=== PATIENT | male | born 1955 ===

== ENCOUNTER 2020-04-21 14:58 | Outpatient (REF) | payer OTHER, SELFPAY ==
--- NOTE | 2020-04-21 15:11 | XR_ITS ---
EXAMINATION: XR LUMBOSACRAL SPINE CLINICAL INFORMATION: Sciatica. COMPARISON: None TECHNIQUE: Three views of the lumbosacral spine. FINDINGS: There is maintained lumbar lordosis. Loss of L5-S1 disc height. Rest the disc heights, vertebral heights and alignment is normal. There is minimal ventral spondylosis. No visible acute fracture, dislocation or lytic process seen. XR/XR lumbar spine 2-3V IMPRESSION: Degenerative disc changes L5-S1 disc level.
== END 2020-04-21 14:59 | disposition home or self-care (01) ==
LOC: HO.HMGCX 14:58
PROVIDERS: PCP Nurse Practitioner Family; Visit Provider Nurse Practitioner Family
DX: M54.30 Sciatica, unspecified side (principal)
CPT/HCPCS: 72100

== ENCOUNTER 2020-08-02 15:36 | Outpatient (REF) | payer OTHER, SELFPAY ==
--- NOTE | ~2020-08-02 | MR_ITS ---
EXAMINATION: MR LUMBAR SPINE WITHOUT CONTRAST CLINICAL INFORMATION: Back pain. Patient reports low back pain radiating to left side, left leg weakness. Patient reports no prior spinal surgery. COMPARISON: None TECHNIQUE: MRI of the lumbar spine was obtained using routine sequences without contrast. FINDINGS: VERTEBRAL BODIES AND PARASPINAL STRUCTURES: On the sagittal sequence, posterior alignment is anatomic. Vertebral body heights are maintained. No evidence of acute fracture. There is loss of T2 disc signal at L2-L3, L3-L4, L4-L5, L5-S1. No suspicious marrow signal changes. CONUS MEDULLARIS AND CAUDA EQUINA: Normal, terminating at the level of L1. SPINAL LEVELS: T12-L1: Normal disc contour. No central canal or neural foraminal stenosis. L1-L2: Normal disc contour. No central canal or neural foraminal stenosis. L2-L3: There is an abnormal mass-like focus in the left side of the central canal and the lateral recess. This measures 1.8 x 0.7 x 1.2 cm. (Craniocaudal, AP, transverse). This focus is heterogeneously bright on T2, low on T1. Reference image 7-8: series 2; images 9-12 of the axial sequences. This abuts the left L3 nerve, with mild mass effect on the traversing nerves in the left central canal. This is of indeterminate etiology. Differential considerations include mass lesion of indeterminate etiology, extruded disc material. There is a minimal broad-based disc bulge at this level. T2 signal in the central aspect of the annulus, may reflect an annular tear in this region. Bilateral neural foramina are patent. L3-L4: Mild broad-based disc bulge, with superimposed asymmetric prominent disc bulge/protrusion in the left paracentral/foraminal region. There is focal amorphous soft tissue in the left lateral recess, image 5 series 7, which is abutting the traversing left L4 nerve. This could represent extruded disc material. There is mild left neural foraminal narrowing. Right neural foramen is patent. L4-L5: Minimal disc bulge. Focal T2 bright signal in the central annulus, may reflect a small annular tear. Mild facet arthropathy. No central canal stenosis. Mild left neural foraminal narrowing. L5-S1: Mild broad-based disc bulge. Left greater than right facet arthropathy. No central canal stenosis. Mild bilateral neural foraminal narrowing. MR/MR lumbar spine wo con IMPRESSION: 1. There is an amorphous mass-like focus in the left side of the central canal and the left lateral recess at L2-L3. This measures 1.8 x 0.7 x 1.2 cm. This is abutting the left L3 nerve, with mild mass effect on the traversing nerves in the central canal. This is of indeterminate etiology. Differential considerations include mass lesion of indeterminate etiology, extruded disc material. Recommend MRI with and without contrast for further evaluation. 2. Possible small annular tear at L2-L3. 3. At L3-L4, disc bulge with asymmetric prominence in the left paracentral/foraminal region. Small amorphous soft tissue in the left lateral recess, abutting the left L4 nerve. This is of indeterminate etiology. This could represent extruded disc material. This can also be evaluated on the followup MRI with and without contrast. 4. At L4-L5, mild disc bulge. Question small annular tear. 5. There is neural foraminal narrowing at multiple levels, detailed [id number].
== END 2020-08-02 15:37 | disposition home or self-care (01) ==
LOC: HO.MRI 15:36
PROVIDERS: Visit Provider Nurse Practitioner Family
DX: M51.36 Other intervertebral disc degeneration, lumbar region (principal); M54.30 Sciatica, unspecified side
CPT/HCPCS: 72148

== ENCOUNTER 2020-09-13 08:02 | Outpatient (REF) | payer OTHER, SELFPAY ==
--- NOTE | ~2020-09-13 | MR_ITS ---
EXAMINATION: MR LUMBAR SPINE WITHOUT AND WITH CONTRAST CLINICAL INFORMATION: 65-year-old with low back and left leg pain. COMPARISON: 08/02/2020 MRI. TECHNIQUE: MRI of the lumbar spine was obtained using routine sequences with and without contrast. Intravenous contrast: Gadavist 8.5 mL FINDINGS: Coronal Alignment:?Normal. Sagittal Alignment:?Normal. Lumbosacral Junction:?Normal. Vertebral Bodies: Normal height. Bone Marrow: Small patchy zone of marrow edema and marrow enhancement corresponding to the posterior aspect of the left iliac bone which is only partially imaged and is nonspecific. Otherwise unremarkable. Conus Medullaris:?Terminates at L1.?Morphology and signal is normal. No abnormal enhancement. Intradural Nerve Roots: Within normal limits. No abnormal intradural enhancement. L5-S1: Mild loss of disc space height and disc desiccation are stable from previous exam, with mild spondylosis and disc bulging and moderate bilateral facet arthropathy with [id number] neural foraminal stenosis, left more than right, stable in appearance without neural impingement and no significant canal stenosis. L4-L5: Disc space height is well maintained with disc desiccation, stable in appearance. There is mild concentric disc bulge and endplate spurring with a left-sided foraminal/extraforaminal disc osteophyte complex encroaching on the inferior left neural foramen, stable in appearance without neural impingement. Mild flattening of the dural sac is noted with a central annular fissure, stable in appearance without significant spinal canal stenosis. L3-L4: Rgsi-[id number] loss of disc space height is noted asymmetric to the left with disc desiccation, stable in appearance from previous exam. There is a left subarticular disc herniation with some enhancing granulation tissue in the left subarticular zone, similar to the previous exam, with encroachment on the origin of the left L4 nerve root sleeve, unchanged in appearance. There is underlying disc bulging and anterior and paravertebral spondylosis, stable in appearance without significant central spinal stenosis. [id number] left-sided neural foraminal stenosis is stable, with disc bulging abutting the exiting left L3 nerve root, unchanged. L2-L3: The previously noted mass-like structure on the left side of the thecal sac at the level of the mid body L3 is no longer visualized and appears to have resolved. There is slightly asymmetric enhancement in the epidural space on the left at this level, the significance of which is uncertain. Disc space height is well maintained with disc desiccation, stable in appearance. There is asymmetric enhancing epidural tissue in the left subarticular recess, and there is minimal disc bulging with a subtle left subarticular disc protrusion. Small inferior foraminal disc herniation on the left, stable in appearance with mild left-sided neural foraminal narrowing, unchanged. No significant central canal stenosis. L1-L2: Disc space height and signal are well maintained without significant disc bulge or herniation and no significant spondylosis, facet arthrosis, canal or neural foraminal stenosis. Anterior marginal spondylosis at T12-L1 is noted. Paraspinal/Retroperitoneal: Paraspinal soft tissue structures appear unremarkable. MR/MR lumbar spine wo/w con IMPRESSION: 1. The previously noted structure on the left side of the canal at L2-L3 was likely an extruded fragment which has almost completely resorbed, with some residual epidural granulation tissue in the left subarticular zone and left lateral recess, with disc bulging and a small left subarticular disc protrusion and inferior left foraminal disc protrusion at this level with stable mild narrowing at the left neural foramen. 2. Multilevel discogenic degenerative changes between L2-L3 and L5-S1 inclusive, as described above with a left-sided subarticular disc herniation at L3-L4 stable from previous exam with enhancing granulation tissue and encroachment on the traversing left L4 nerve root sleeve origin. 3. Other degenerative changes, as discussed above, are stable.
[2020-09-13 09:00] LABS: Blood Urea Nitrogen 17 mg/dL (9-16); Estimated Glomerular Filt Rate > 60
== END 2020-09-13 08:03 | disposition home or self-care (01) ==
LOC: HO.MRI 08:02
PROVIDERS: Visit Provider Nurse Practitioner Family
DX: M89.9 Disorder of bone, unspecified (principal)
CPT/HCPCS: 36415; 72158; 82565; 84520; A9585

== ENCOUNTER 2021-01-20 06:37 | Day surgery (SDC) | payer OTHER, SELFPAY ==
[2020-10-18 11:11] VITALS: BMI 25.9
--- NOTE | 2020-10-20 09:10 | P.CONAN_ITS ---
HPI - Anesthesia Eval Consult details Narrative: 65yo M for Colonoscopy afib - no OAC +ETOH PMFSH Active Problems Active Problems: All Active Problems (Updated 10/18/20 @ 11:16 by India Becerra) Degenerative disc disease, lumbar (Acute) Atrial fibrillation and flutter (Acute) Screening for colon cancer (Acute) Physical exam (Acute) Screening PSA (prostate specific antigen) (Acute) Fatigue (Acute) Skin lesion (Acute) Lesion of lumbar spine (Acute) Sleep apnea (Acute) Dupuytren contracture (Acute) Sciatica (Acute) Past Medical History Medical History (Updated 10/18/20 @ 11:16 by India Becerra) Alcohol abuse Atrial flutter Dupuytren contracture Sciatica Family History Family History Father Lung cancer Mother No problems noted. Surgical History Surgical History (Updated 10/18/20 @ 11:14 by India Beecrra) H/O colonoscopy History of cardioversion History of rotator cuff surgery Social History Social History (Updated 10/18/20 @ 13:15 by India Becerra) Alcohol intake: current Alcohol intake frequency: 3 or more drinks per day Alcohol type: wine and hard liquor Smoking Status: Former smoker Tobacco Type: Cigarette Years Smoked: 10 years Smoking Quit Date: 2013 Meds Allergies Allergy/AdvReac Type Severity Reaction Status Date / Time No Known Allergies Allergy Verified 07/22/20 13:35 Home Medications Medication Instructions Recorded Confirmed Last Taken Type metoprolol succinate 1 tab PO DAILY 10/18/20 10/18/20 Unknown History metoprolol tartrate 50 mg PO DAILY PRN 10/18/20 10/18/20 Unknown History Exam Exam Date and Time: October 20, 2020 0910 Height,Weight and Vital Signs: Height 6 ft Weight 86.636 kg Assessment and Plan Assessment Anesthesia Assessment: Chart Reviewed
--- NOTE | 2021-01-19 08:17 | HO.ANESPROP2 ---
Documented by User: Radha Valderrama 01/19/21 08:19 HPI - Anesthesia Eval Consult details Narrative: 65yo M for Colonoscopy +ETOH daily No anticoag for afib/flutter. S/P cardioversion PMFSH Active Problems Active Problems: All Active Problems (Updated 10/18/20 @ 11:16 by India Becerra) Degenerative disc disease, lumbar (Acute) Atrial fibrillation and flutter (Acute) Screening for colon cancer (Acute) Physical exam (Acute) Screening PSA (prostate specific antigen) (Acute) Fatigue (Acute) Skin lesion (Acute) Lesion of lumbar spine (Acute) Sleep apnea (Acute) Dupuytren contracture (Acute) Sciatica (Acute) Past Medical History Medical History (Updated 10/20/20 @ 09:10 by Radha Valderrama) Alcohol abuse Atrial flutter Dupuytren contracture Sciatica Family History Family History Father Lung cancer Mother No problems noted. Surgical History Surgical History (Updated 10/18/20 @ 11:14 by India Becerra) H/O colonoscopy History of cardioversion History of rotator cuff surgery Social History Social History (Updated 10/18/20 @ 13:15 by India Becerra) Alcohol intake: current Alcohol intake frequency: 3 or more drinks per day Alcohol type: wine and hard liquor Years Smoked: 10 years Advance Directives: No Advance Directives Information Provided: No Meds Allergies Allergy/AdvReac Type Severity Reaction Status Date / Time No Known Allergies Allergy Verified 07/22/20 13:35 Home Medications Medication Instructions Recorded Confirmed Last Taken Type metoprolol succinate 25 mg 1 tab PO DAILY 10/18/20 10/18/20 01/20/21 History tablet,extended release 24 hr metoprolol tartrate 50 mg tablet 50 mg PO DAILY PRN 10/18/20 10/18/20 Unknown History flecainide 100 mg tablet 1 tab PO Q12H 01/13/21 01/13/21 01/20/21 History Exam Exam Date and Time: January 19, 2021 0817 Height,Weight and Vital Signs: Height 6 ft Weight 86.636 kg Assessment and Plan Assessment Anesthesia Assessment: Chart Reviewed Documented by User: Марина Juvencio 01/20/21 07:14 [facility] Past Medical History Medical History (Updated 10/20/20 @ 09:10 by Radha Valderrama) Alcohol abuse Atrial flutter Dupuytren contracture Sciatica Family History Family History Father Lung cancer Mother No problems noted. Family history of problems with anesthesia: No Surgical History Surgical History (Updated 10/18/20 @ 11:14 by India Becerra) H/O colonoscopy History of cardioversion History of rotator cuff surgery History of Problems with Anesthesia: No Social History Social History (Updated 10/18/20 @ 13:15 by India Becerra) Alcohol intake: current Alcohol intake frequency: 3 or more drinks per day Alcohol type: wine and hard liquor Years Smoked: 10 years Advance Directives: No Advance Directives Information Provided: No Meds Allergies Allergy/AdvReac Type Severity Reaction Status Date / Time No Known Allergies Allergy Verified 07/22/20 13:35 Home Medications Medication Instructions Recorded Confirmed Last Taken Type metoprolol succinate 25 mg 1 tab PO DAILY 10/18/20 10/18/20 01/20/21 History tablet,extended release 24 hr metoprolol tartrate 50 mg tablet 50 mg PO DAILY PRN 10/18/20 10/18/20 Unknown History flecainide 100 mg tablet 1 tab PO Q12H 01/13/21 01/13/21 01/20/21 History Exam Airway Mallampati Class: II (Caps top front side) TM Dist: >3cm Neck ROM: Full Heart: rrr Lungs: cta Assessment and Plan Assessment Anesthesia Assessment: Anesthesia Plan Discussed and Chart Reviewed Final Anesthetic Review Family History of Problems with Anesthesia: No History of Problems with Anesthesia: No NPO: Yes ASA Class: II Final Preanesthetic Review: No Changes in Pt Med Stat and Consent Obtained/Reviewed Patient Risk: Intermediate Procedure Risk: Intermediate Anesthetic Plan Anesthetic Plan: MAC: Disposition: Standard PACU
[2021-01-20 06:57] VITALS: BP 136/72; PULSE 45; RESP 16; TEMP 36.2; O2SAT 95
[2021-01-20] MEDS: Lactated Ringers 1,000 ML 100 ML IVCONT (07:04)
[2021-01-20 08:30] VITALS: BP 97/55; PULSE 40; RESP 14; TEMP 36.1; O2SAT 96
--- NOTE | 2021-01-20 08:34 | PM.OP ---
Brief Operative Note Date of Service: 01/20/21 Pre-op diagnosis: Screening Post-op diagnosis: other (Diverticulosis) Procedure: Colonoscopy to the cecum and TI Surgeon: Aleksandr Lazcano Anesthesia: MAC Was an Sheet Manufacturing Supervisor used for this Procedure?: No Estimated blood loss (mL): 0 Pathology: none sent Condition: stable Disposition: PACU
[2021-01-20 08:45] VITALS: BP 130/69; PULSE 38; RESP 16; O2SAT 98
--- NOTE | 2021-01-20 08:51 | OP_ITS ---
SURGEON: Aleksandr Lazcano MD INDICATIONS: The patient presents for evaluation of colorectal cancer screening. Full consent has been obtained from him for this, including risks of bleeding and perforation. PREOPERATIVE DIAGNOSIS: Colorectal cancer screening. POSTOPERATIVE DIAGNOSIS: PROCEDURE PERFORMED: Colonoscopy to the cecum and terminal ileum. ESTIMATED BLOOD LOSS: COMPLICATIONS: ANESTHESIA: Monitored anesthesia care. ASSISTANTS: SPECIMENS: POSTOPERATIVE DIAGNOSES: Colorectal cancer screening, mild sigmoid diverticulosis, small internal hemorrhoids. DESCRIPTION OF PROCEDURE: The patient was placed in the left lateral decubitus position. The digital rectal exam revealed no abnormalities. The Olympus video pediatric colonoscope was entered into the rectum and advanced easily to the cecum. Once in the cecum, I did identify normal-appearing cecal pouch with appendiceal orifice and a normal-appearing ileocecal valve. The terminal ileum was cannulated and appeared normal. The scope was withdrawn back in the colon. The entire cecum and ileocecal valve appeared normal. Scope was slowly withdrawn assessing all mucosal surfaces carefully. Preparation was excellent. I did not visualize any sign of polyps, colitis, nor angiodysplasia. There was a mild amount of sigmoid diverticulosis. In the rectum, scope was retroflexed visualizing small internal hemorrhoids, but no other pathology. The rectal mucosa appeared normal. The scope was straightened out and withdrawn from the patient. He tolerated the procedure well and was returned to the recovery area in stable condition. IMPRESSION: 1. Mild sigmoid diverticulosis. 2. Small internal hemorrhoids. PLAN: Given today's negative exam and negative family history, I would recommend a followup colonoscopy in 10 years for further screening. He will otherwise see me on a p.r.n. basis. MD DOMINGA Burks/ARELIS / [phone]
== END 2021-01-20 09:33 | disposition home or self-care (01) ==
PROVIDERS: PCP Nurse Practitioner Family; Visit Provider Internal Medicine
PROC: 0DJD8ZZ Inspection of Lower Intestinal Tract, Via Natural or Artificial Opening Endoscopic (ICD-10-PCS; CPT 45378; principal; 2021-01-20 07:30)
DX: Z12.11 Encounter for screening for malignant neoplasm of colon (principal); K57.30 Diverticulosis of large intestine without perforation or abscess without bleeding; K64.8 Other hemorrhoids; I48.92 Unspecified atrial flutter; Z79.899 Other long term (current) drug therapy; Z79.1 Long term (current) use of non-steroidal anti-inflammatories (NSAID); Z87.891 Personal history of nicotine dependence
CPT/HCPCS: 45378

== ENCOUNTER 2023-03-16 09:57 | Outpatient (REF) | payer OTHER, SELFPAY ==
[2023-03-16 11:34] LABS: MANUAL DIFF FLAG NO
[2023-03-16 11:47] LABS: Basophils Percent Auto 0.4 % (0-2); Eosinophils Absolute Auto 0.1 X10*3/uL (0.0-0.4); Eosinophils Percent Auto 1.8 % (0-4); Hematocrit 42.3 % (42.0-52.0); Hemoglobin 13.7 g/dl (14.0-18.0); Imm Gran Abs Auto 0.01 X10*3/uL (0.00-0.03); Imm Gran Pct Auto 0.2 % (0.0-0.4); Lymphocytes Absolute Auto 1.7 X10*3/uL (1.2-4.9); Lymphocytes Percent Auto 31.8 % (20-40); Mean Corpuscular HGB Conc 32.4 g/dl (31.0-36.0); Mean Corpuscular Hemoglobin 31.1 pg (27.0-33.0); Mean Corpuscular Volume 96.1 fL (80.0-98.0); Mean Platelet Volume 11.7 fL (9.4-12.4); Monocytes Absolute Auto 0.5 X10*3/uL (0.1-1.2); Monocytes Percent Auto 8.4 % (2-11); Neutrophils Absolute Auto 3.2 x10*3/uL (2.0-8.3); Neutrophils Percent Auto 57.4 % (45-73); Platelet Count 262 X10*3/uL (160-400); Red Cell Distribution Width 13.9 % (11.0-16.0); White Blood Count 5.5 X10*3/uL (4.8-10.8)
[2023-03-16 11:57] LABS: Appearance Urine Clear; Color Urine Yellow; Glucose Urine UA Negative (Negative); Leukocyte Esterase Urine Negative (Negative); Nitrite Urine Negative (Negative); PH 6.5 (5.0-9.0); Specific Gravity - Urine 1.015 (1.005-1.025); Urine Blood Negative (Negative); Urine Ketones Negative (Negative); Urine Protein Negative (Neg-Trace)
[2023-03-16 12:16] LABS: Alanine Aminotransferase 17 U/L (0-40); Alkaline Phosphatase 48 U/L (39-117); Anion Gap 12 (12-20); Aspartate Amino Transferase 25 U/L (5-37); Bilirubin Total 0.6 mg/dL (0.0-1.0); Blood Urea Nitrogen 14 mg/dL (9-16); Calcium 9.3 mg/dL (8.4-10.2); Carbon Dioxide 27 mmol/L (22-29); Chloride 106 mmol/L (96-108); Cholesterol 232 mg/dL (<200); Estimated Glomerular Filt Rate > 60; Glucose Fasting 101 mg/dL (60-99); HDL Cholesterol 66 mg/dL (>40); LDL Cholesterol Calculated 153 mg/dL (<100); Potassium 4.3 mmol/L (3.3-5.1); Sodium 141 mmol/L (135-145); Total Protein 6.7 g/dL (6.5-8.0); Triglycerides 65 mg/dL (<150)
[2023-03-16 12:31] LABS: TSH reflex Free T4 1.79 uIU/mL (0.32-4.0)
[2023-03-16 12:32] LABS: Prostate Specific Antigen Scr 0.67 ng/mL (<0.05-4.0)
[2023-03-21 10:14] LABS: Testosterone, Free 79.1 pg/mL (35.0-155.0); Testosterone, Total 471 ng/dL (250-1100)
== END 2023-03-16 09:58 | disposition home or self-care (01) ==
LOC: HO.HMGCLDS 09:57
PROVIDERS: PCP Nurse Practitioner Family; Visit Provider Nurse Practitioner Family
DX: Z00.00 Encounter for general adult medical examination without abnormal findings (principal); F52.0 Hypoactive sexual desire disorder; Z12.5 Encounter for screening for malignant neoplasm of prostate; I10 Essential (primary) hypertension
CPT/HCPCS: 36415; 80053; 80061; 81003; 84153; 84402; 84403; 84443; 85025

== ENCOUNTER 2023-03-21 15:03 | Outpatient (AMB) | payer OTHER, SELFPAY ==
[2023-03-21 15:25] VITALS: BP 128/68; PULSE 55; O2SAT 96; BMI 25.0
--- NOTE | 2023-03-21 15:25 | MHC.PC.OV ---
Vital Signs 03/21/23 15:25 Height 6 ft Weight 184 lb BMI 25.0 BP 128/68 Blood Pressure Location Rt brachial Position Sitting Pulse 55 Pulse Source Pulse Oximeter Pulse Oximetry (%) 96 Oxygen Delivery Method Room Air Intake Visit Reasons: 6 Month follow up after labs done Intake Note: pt is here for 6 on f/u Allergies No Known Allergies Allergy (Verified 03/21/23 15:27) Tobacco use date assessed: 09/20/22 Fall risk assessment: No Falls in past year Last assessed Fall Risk: 03/21/23 Dental Screening Dental Screen Date: 03/21/23 Did you have a dental visit in the last 12 months?: Yes Did you have a dental problem in the last 6 months where you did not have access to dental care?: No Was dental information given to patient?: Patient has dentist HPI 6 Month follow up after labs done HPI Details HTN: stable currently. Pt denies any CP, SOB, JARQUIN, or dizziness. afib: sees cardiology. slight anemia: will recheck labs PFSH Medical History Osteoarthritis Lumbar herniated disc Alcohol abuse Atrial flutter Dupuytren contracture Sciatica Surgical History H/O colonoscopy History of cardioversion History of rotator cuff surgery Family History Father Lung cancer Mother No problems noted. Son Mental health disorder Social History Housing: House Alcohol intake: current Alcohol intake frequency: 3 or more drinks per day Alcohol type: wine and hard liquor Patient Tobacco Use Status: Former Tobacco user Years Smoked: 10 years e-Cigarette/Vaping Use: Never Used Second Hand Smoke Exposure: No Current occupational status: employed Cognitive needs: No Hearing needs: No Vision needs: No Questionnaire Thrive Questionnaire Date Thrive assessed: 09/20/22 REECE-7 AMB Questionnaire REECE-7 Date REECE - 7 assessed: 09/20/22 Source: Developed by Drs. Aleksandr Mendoza, Juliet Rubio, Silas Nicolas and colleagues, with an educational saray from [employer]. Physical exam (Primary Care) Vital Signs: Last Vital Signs Pulse 55 03/21/23 15:25 BP 128/68 03/21/23 15:25 Pulse Ox 96 03/21/23 15:25 Oxygen Delivery Method Room Air 03/21/23 15:25 BMI result Body Mass Index 25.0 Tobacco/Smoking Status: Tobacco use Status Tobacco use date assessed 09/20/22 03/21/23 15:29 Patient Tobacco Use Status Former Tobacco user 03/21/23 15:29 e-Cigarette/Vaping Use Never Used 03/21/23 15:29 Thrive Assessment: Date of Thrive Assessment Date Thrive assessed 09/20/22 03/21/23 15:29 Const General: cooperative Nutritional Appearance: average body habitus Resp Effort & Inspection: normal respiratory effort Auscultation: clear to auscultation bilaterally Cardio Rate: regular rate Rhythm: regular rhythm Heart sounds: S1 normal heart sound present and S2 normal heart sound present Extrem Right lower extremity: no edema Left lower extremity: no edema Psych Appearance: grossly normal Mental Status: mental status grossly normal Speech and movement: Normal speech and movement present Affect: normal affect Attitude: cooperative Thought process: Normal thought process present Thought content: Normal thought content present Insight: Good insight present (Psych) Judgement: Good judgement present (Psych) Assessment and Plan Assessment & Plan (1) HTN (hypertension): Code(s): I10 - Essential (primary) hypertension (2) Anemia: Code(s): D64.9 - Anemia, unspecified Orders: Orders Complete Blood Count Auto Diff Today I10 - Essential (primary) hypertension IRON PROFILE Today D64.9 - Anemia, unspecified Ferritin Today D64.9 - Anemia, unspecified Vitamin B12 and Folate Today D64.9 - Anemia, unspecified Coding Level of Care Code Est Pt Level 3 (20983) Diagnoses HTN (hypertension) I10 Anemia D64.9
== END 2023-03-21 16:36 | disposition home or self-care (01) ==
PROVIDERS: Visit Provider Nurse Practitioner Family
DX: I10 Essential (primary) hypertension (principal); D64.9 Anemia, unspecified
CPT/HCPCS: 99213

== ENCOUNTER 2023-07-19 10:01 | Outpatient (REF) | payer OTHER, SELFPAY ==
[2023-07-19 13:15] LABS: MANUAL DIFF FLAG NO
[2023-07-19 13:45] LABS: Basophils Percent Auto 0.3 % (0-2); Eosinophils Absolute Auto 0.1 X10*3/uL (0.0-0.4); Eosinophils Percent Auto 1.2 % (0-4); Hematocrit 43.4 % (42.0-52.0); Imm Gran Abs Auto 0.03 X10*3/uL (0.00-0.03); Imm Gran Pct Auto 0.5 % (0.0-0.4); Lymphocytes Absolute Auto 1.9 X10*3/uL (1.2-4.9); Lymphocytes Percent Auto 31.5 % (20-40); Mean Corpuscular HGB Conc 32.3 g/dl (31.0-36.0); Mean Corpuscular Hemoglobin 31.5 pg (27.0-33.0); Mean Corpuscular Volume 97.5 fL (80.0-98.0); Monocytes Absolute Auto 0.5 X10*3/uL (0.1-1.2); Monocytes Percent Auto 8.9 % (2-11); Neutrophils Absolute Auto 3.5 x10*3/uL (2.0-8.3); Neutrophils Percent Auto 57.6 % (45-73); Platelet Count 282 X10*3/uL (160-400); Red Blood Count 4.45 X10*6/uL (4.60-5.80); Red Cell Distribution Width 13.5 % (11.0-16.0); White Blood Count 6.1 X10*3/uL (4.8-10.8)
[2023-07-19 13:58] LABS: Ferritin 210 ng/mL (20-250); Iron 110 mcg/dL (45-160); Percent Iron Saturation 39 % (15-50); Total Iron Binding Capacity 282 mcg/dL (228-428); Unsaturated Iron Binding 172 ug/dL
[2023-07-19 14:17] LABS: Folate 12.4 ng/mL (> or = 4.0); Vitamin B12 348 pg/mL (200-900)
[2023-07-19 14:59] LABS: CDiff Gene PCR NEGATIVE (Negative)
[2023-07-19 15:13] LABS: Adenovirus F 40/41 Not Detected (Not Detect.); Astrovirus Not Detected (Not Detect.); Campylobacter Not Detected (Not Detect.); Cryptosporidium Not Detected (Not Detect.); Cyclospora cayetanensis Not Detected (Not Detect.); E. coli EAEC Not Detected (Not Detect.); E. coli EPEC Not Detected (Not Detect.); E. coli ETEC Not Detected (Not Detect.); E. coli STEC Not Detected (Not Detect.); Entamoeba histolytica Not Detected (Not Detect.); Giardia lamblia Not Detected (Not Detect.); Norovirus GI/GII Not Detected (Not Detect.); Plesiomonas shigelloides Not Detected (Not Detect.); Rotavirus A Not Detected (Not Detect.); Salmonella Not Detected (Not Detect.); Sapovirus Not Detected (Not Detect.); Shigella sp./EIEC Not Detected (Not Detect.); Vibrio Not Detected (Not Detect.); Vibrio Cholerae Not Detected (Not Detect.); Yersinia enterocolitica Not Detected (Not Detect.)
== END 2023-07-19 10:02 | disposition home or self-care (01) ==
LOC: HO.HMGCLDS 10:01
PROVIDERS: PCP Nurse Practitioner Family; Visit Provider Nurse Practitioner Family
DX: D64.9 Anemia, unspecified (principal); I10 Essential (primary) hypertension; R19.7 Diarrhea, unspecified
CPT/HCPCS: 36415; 82607; 82728; 82746; 83540; 85025; 87338; 87493; 87507

== ENCOUNTER 2023-09-25 16:31 | Outpatient (AMB) | payer OTHER, SELFPAY ==
--- NOTE | 2023-09-25 16:32 | MHC.PC.OV ---
Vital Signs 09/25/23 16:35 Weight 183 lb BP 112/78 Blood Pressure Location Rt brachial Position Sitting Pulse 49 L Pulse Source Pulse Oximeter Pulse Oximetry (%) 98 Oxygen Delivery Method Room Air Intake Visit Reasons: Annual PE Intake Note: Patient here for physical exam. pt would like to talk about weight loss colonoscopy: 2020 due back in 10yrs Allergies No Known Allergies Allergy (Verified 09/25/23 17:28) Medication List - Last Reconciled 09/25/23 by LISY Carter flecainide 1 tab PO Q12H metoprolol succinate ER 1 tab PO DAILY metoprolol tartrate 50 mg PO DAILY PRN scopolamine base 1 patch transdermal Q72H PRN Tobacco use date assessed: 09/25/23 Fall risk assessment: No Falls in past year Last assessed Fall Risk: 09/25/23 Dental Screening Dental Screen Date: 09/25/23 Did you have a dental visit in the last 12 months?: Yes Did you have a dental problem in the last 6 months where you did not have access to dental care?: No Was dental information given to patient?: Patient has dentist HPI Annual PE HPI Details Pt is here for a PE. Will order labs. Colon screen is up to date. PSA is up to date. Denies dribbling with urination, weak stream, and frequent nocturia. Pt reports low libido. Will check testosterone. 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 He also sees cardiology. [facility] Medical History Osteoarthritis Lumbar herniated disc Alcohol abuse Atrial flutter Dupuytren contracture Sciatica Surgical History H/O colonoscopy History of cardioversion History of rotator cuff surgery Family History Father Lung cancer Mother No problems noted. Son Mental health disorder Social History Housing: House Alcohol intake: current Alcohol intake frequency: 3 or more drinks per day Alcohol type: wine and hard liquor Patient Tobacco Use Status: Former Tobacco user Years Smoked: 10 years e-Cigarette/Vaping Use: Never Used Second Hand Smoke Exposure: No Current occupational status: employed Cognitive needs: No Hearing needs: No Vision needs: No Questionnaire Thrive Questionnaire Date Thrive assessed: 09/20/22 AUDIT C Alcohol Use Questionnaire (AUDIT-C) 1. How often do you have a drink containing alcohol?: Never 3. How often do you have six or more drinks on one occasion?: Never Total Score: 0 Score Reviewed/Action Taken: No REECE-7 AMB Questionnaire REECE-7 Date REECE - 7 assessed: 09/20/22 Source: Developed by Drs. Aleksandr Mendoza, Juliet Rubio, Silas Nicolas and colleagues, with an educational saray from [employer]. Review of Systems Const Denies chills and Denies fever(s) Eyes Denies blurry vision ENT Denies vertigo, Denies dizziness and Denies sore throat Card Denies chest pain at rest, Denies chest pain with activity, Denies diaphoresis, Denies dyspnea and Denies dyspnea on exertion Resp Denies cough, Denies dyspnea, Denies dyspnea on exertion and Denies wheezing GI Denies abdominal pain, Denies melena, Denies hematochezia, Denies constipation, Denies diarrhea and Denies loose stools Denies hematuria Musc Denies numbness and Denies tingling Skin/Breast Denies lesions Neuro Denies vertigo, Denies dizziness, Denies numbness and Denies tingling Psych Denies anxiety, Denies depression, Denies homicidal ideation, Denies suicidal ideation and Denies other (substance abuse) Aller/Immun Denies wheezing Physical exam (Primary Care) Vital Signs: Last Vital Signs Pulse 49 L 09/25/23 16:35 BP 112/78 09/25/23 16:35 Pulse Ox 98 09/25/23 16:35 Oxygen Delivery Method Room Air 09/25/23 16:35 Tobacco/Smoking Status: Tobacco use Status Tobacco use date assessed 09/25/23 09/25/23 16:40 Patient Tobacco Use Status Former Tobacco user 09/25/23 16:34 e-Cigarette/Vaping Use Never Used 09/25/23 16:34 Thrive Assessment: Date of Thrive Assessment Date Thrive assessed 09/20/22 09/25/23 16:34 Const General: cooperative Nutritional Appearance: well nourished Orientation/consciousness: patient oriented x3 HENMT Head: Yes normal to inspection, Yes normocephalic and Yes atraumatic Ears: TM's normal bilaterally Eyes General: appearance normal, both eyes and all related structures Alignment and Position: alignment normal and position normal Neck Neck: Yes normal visual inspection and Yes no lymphadenopathy Thyroid: Thyroid normal Resp Effort & Inspection: normal respiratory effort Auscultation: clear to auscultation bilaterally Cardio Rate: regular rate Rhythm: regular rhythm Heart sounds: S1 normal heart sound present, S2 normal heart sound present and no murmurs GI Palpation (GI): Soft to palpation and nontender Auscultation: normal bowel sounds Male General Exam: Yes normal external exam Penis: normal penis Scrotum: scrotum normal, testes descended bilaterally and no inguinal hernias Testes: no testicular mass Skin Rashes: no rashes Neuro General: patient oriented x3, moves all extremities, no focal motor deficits and deep tendon reflexes 2+ bilaterally Romberg Test: Negative Psych Appearance: grossly normal Mental Status: mental status grossly normal Speech and movement: Normal speech and movement present Affect: normal affect Attitude: cooperative Thought process: Normal thought process present Thought content: Normal thought content present Insight: Good insight present (Psych) Judgement: Good judgement present (Psych) Assessment and Plan Assessment & Plan (1) Physical exam: Code(s): Z00.00 - Encounter for general adult medical examination without abnormal findings Plan: Labs ordered (2) Lack of libido: Code(s): 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 Scribed for LISY Lim by Eliana Coppola emergency medical services coordinator, on 09/25/2023 at 16:45 EST. Orders: Orders Complete Blood Count Auto Diff Today Z00.00 - Encounter for general adult medical examination without abnormal findings UA CC w/rflx Micro + Cult Today Z00.00 - Encounter for general adult medical examination without abnormal findings Comprehensive [place]. 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
[2023-09-25 16:35] VITALS: BP 112/78; PULSE 49; O2SAT 98
== END 2023-09-25 17:08 | disposition home or self-care (01) ==
PROVIDERS: PCP Nurse Practitioner Family; Visit Provider Nurse Practitioner Family
DX: Z00.00 Encounter for general adult medical examination without abnormal findings (principal); F52.0 Hypoactive sexual desire disorder
CPT/HCPCS: 99397

== ENCOUNTER 2024-03-31 16:11 | Outpatient (AMB) | payer OTHER, SELFPAY ==
--- NOTE | 2024-03-31 16:15 | A.OFFPC_ITS ---
Vital Signs 03/31/24 16:17 Height 6 ft Weight 185 lb BMI 25.1 BP 132/72 Blood Pressure Location Lt brachial Position Sitting Pulse 54 Pulse Source Pulse Oximeter Pulse Oximetry (%) 97 Oxygen Delivery Method Room Air Intake Visit Reasons: 6M F/U Intake Note: Pt is here today for his 6mo. f/u Allergies No Known Allergies Allergy (Verified 03/31/24 16:43) Medication List - Last Reconciled 03/31/24 by LISY Carter apixaban (Eliquis) 5 mg PO BID flecainide 1 tab PO Q12H metoprolol succinate ER 1 tab PO DAILY metoprolol tartrate 50 mg PO DAILY PRN scopolamine base 1 patch transdermal Q72H PRN Tobacco use date assessed: 03/31/24 Fall risk assessment: No Falls in past year Last assessed Fall Risk: 03/31/24 Dental Screening Dental Screen Date: 03/31/24 Did you have a dental visit in the last 12 months?: Yes Did you have a dental problem in the last 6 months where you did not have access to dental care?: No Was dental information given to patient?: Patient has dentist HPI 6M F/U HPI Details HTN: stable, 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 Pt denies anymore flutter type symptoms. He reports CP, 15 second intervals, once each week (for the past 3 weeks), while driving. Currently, missing all documentation from his cardiology team, including previous EKGs. No acute issues noted on current EKG, though will try to contact patient's cardiology team 1st thing tomorrow morning to get recent notes including previous EKGs for comparison. Patient refuses to go to the emergency room, denies shortness of breath, palpitations, radicular symptoms down and upper extremity. PFSH Medical History Osteoarthritis Lumbar herniated disc Alcohol abuse Atrial flutter Dupuytren contracture Sciatica Surgical History H/O colonoscopy History of cardioversion History of rotator cuff surgery Family History Father Lung cancer Mother No problems noted. Son Mental health disorder Social History Housing: House Alcohol intake: current Alcohol intake frequency: 3 or more drinks per day Alcohol type: wine and hard liquor Patient Tobacco Use Status: Former Tobacco user Years Smoked: 10 years e-Cigarette/Vaping Use: Never Used Second Hand Smoke Exposure: No Current occupational status: employed Cognitive needs: No Hearing needs: No Vision needs: No Questionnaire PHQ-9 Over the last 2 weeks, how often have you been bothered by any of the following problems? 05690 - PHQ-9 Billing: Patient declined-do not bill Source: Developed by Drs. Aleksandr Mendoza, Juliet Rubio, Silas Nicolas and colleagues, with an educational saray from [employer]. Thrive Questionnaire Date Thrive assessed: 03/31/24 I am a: Patient What is your living situation today?: I choose not to answer this question Within the past 12 months, did the food you bought not last and you didn't have the money to get more?: I choose not to answer this question Within the past 12 months, did you worry whether your food would run out before you got money to buy more?: I choose not to answer this question Do you have trouble paying for medicines?: I choose not to answer this question Do you have trouble getting transportation to medical appointments?: I choose not to answer this question Do you have trouble paying your heating and electricity bill?: I choose not to answer this question Do you have trouble taking care of your child, family member or friend?: I choose not to answer this question Do you have trouble with day-to-day activities such as bathing, preparing meals, shopping, managing finances, etc.?: I choose not to answer this question Are you interested in more education?: I choose not to answer this question Please select the resources that you would like help with: None Currently or been in a relationship where the following occur: I choose not to answer THRIVE Score: 0 AUDIT C Alcohol Use Questionnaire (AUDIT-C) 1. How often do you have a drink containing alcohol?: 4 or more times a week 2. How many drinks containing alcohol do you have on a typical day when you are drinking?: 3 or 4 3. How often do you have six or more drinks on one occasion?: Daily or almost daily Total Score: 9 Score Reviewed/Action Taken: Yes (Patient does report drinking wine on a daily basis, he understands dangers ) REECE-7 AMB Questionnaire REECE-7 Date REECE - 7 assessed: 03/31/24 Feeling nervous, anxious, or on edge: 0 = Not at all Not being able to stop or control worryin = Not at all Worrying too much about different things: 0 = Not at all Trouble relaxin = Not at all Being so restless that it is hard to sit still: 0 = Not at all Becoming easily annoyed or irritable: 0 = Not at all Feeling afraid as if something awful might happen: 0 = Not at all Total REECE-7 score (0-4 normal; 5-9 mild; 10-14 moderate; 15-21 severe): 0 Source: Developed by Drs. Aleksandr Mendoza, Juliet Rubio, Silas Nicolas and colleagues, with an educational saray from [employer]. REECE-7 Assessment Billing REECE-7 Assessment Tool: REECE-7 Assessment 15157 Physical exam (Primary Care) Vital Signs: Last Vital Signs Pulse 54 03/31/24 16:17 BP 132/72 03/31/24 16:17 Pulse Ox 97 03/31/24 16:17 Oxygen Delivery Method Room Air 03/31/24 16:17 BMI result Body Mass Index 25.1 Tobacco/Smoking Status: Tobacco use Status Tobacco use date assessed 03/31/24 03/31/24 16:20 Patient Tobacco Use Status Former Tobacco user 03/31/24 16:20 e-Cigarette/Vaping Use Never Used 03/31/24 16:20 Thrive Assessment: Date of Thrive Assessment Date Thrive assessed 09/20/22 03/31/24 16:20 Currently or been in a relationship where the following occur: I choose not to answer Const General: cooperative Resp Effort & Inspection: normal respiratory effort Auscultation: clear to auscultation bilaterally Cardio Rate: bradycardic Rhythm: regular rhythm Heart sounds: S1 normal heart sound present, S2 normal heart sound present and Murmur heart sound present systolic (faint) Extrem Right lower extremity: no edema Left lower extremity: no edema Coding Level of Care Code Est Pt Level 3 (81523) Diagnoses Screening PSA (prostate specific antigen) Z12.5 Chest pain R07.9 HTN (hypertension) I10 Additional Codes REECE-7 Assessment Billing - REECE-7 Assessment Tool: REECE-7 Assessment 01314 ([id number]) Assessment & Plan Assessment & Plan (1) Screening PSA (prostate specific antigen): Code(s): Z12.5 - Encounter for screening for malignant neoplasm of prostate Category: Medical Plan: PSA ordered (2) Chest pain: Code(s): R07.9 - Chest pain, unspecified Category: Medical Plan: Patient told to go the ER, he refused currently. Will track down patient's most recent cardiology note and EKGs. (3) HTN (hypertension): Code(s): I10 - Essential (primary) hypertension Category: Medical Plan: Stable, encouraged patient to get labs in the near future fasting. Orders: Orders Prostate Specific Antigen Scr Today Z12.5 - Encounter for screening for malignant neoplasm of prostate AMB EKG-In Office Today R07.9 - Chest pain, unspecified
[2024-03-31 16:17] VITALS: BP 132/72; PULSE 54; O2SAT 97; BMI 25.1
== END 2024-03-31 17:11 | disposition home or self-care (01) ==
PROVIDERS: PCP Nurse Practitioner Family; Visit Provider Nurse Practitioner Family
DX: Z12.5 Encounter for screening for malignant neoplasm of prostate (principal); R07.9 Chest pain, unspecified; I10 Essential (primary) hypertension

== ENCOUNTER → 2024-03-31 16:11 | Outpatient (BNVA) | payer OTHER, SELFPAY | PROVIDERS: PCP Nurse Practitioner Family; Visit Provider Nurse Practitioner Family | DX: R07.9 Chest pain, unspecified (principal); I10 Essential (primary) hypertension | CPT/HCPCS: 96127 ==

== ENCOUNTER 2024-10-01 15:26 | Outpatient (AMB) | payer OTHER, SELFPAY ==
--- NOTE | 2024-10-01 15:27 | A.OFFPC_ITS ---
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 Accompanied by: Self / Same As Patient Allergies No Known Allergies Allergy (Verified 10/01/24 16:18) Medication List - Last Reconciled 10/01/24 by Toribio Mariano [facility] apixaban (Eliquis) 5 mg PO BID metoprolol succinate ER 25 mg PO DAILY scopolamine base 1 patch transdermal Q72H PRN Tobacco use date assessed: 10/01/24 Fall risk assessment: No Falls in past year Last assessed Fall Risk: 10/01/24 Dental Screening Dental Screen Date: 10/01/24 Did you have a dental visit in the last 12 months?: Yes Did you have a dental problem in the last 6 months where you did not have access to dental care?: No Was dental information given to patient?: Patient has dentist HPI PE HPI Details History of Present Illness The patient is a 69-year-old male presenting for a wellness visit and a blood examination. He actively manages his atrial fibrillation with regular cardiology consultations and sees a farm loan inspector for ongoing skin health. He experiences a slower urinary stream in the mornings, but without nocturia or incomplete bladder emptying sensations. He denies other systemic symptoms commonly associated with the conditions, ensuring an absence of acute concerns in the cardiovascular, respiratory, or digestive systems. The patient declined a ROSARIO during this encounter but is amenable to PSA testing for prostate assessment. His medical care reflects adherence to preventive measures, including up-to-date colonoscopy screenings. Lackof sexual drive reported, will check a T level. Health Maintenance - Regular follow-up with block captain amandeep ross atrial fibrillation management. - Routine dermatological consultations. - Colonoscopy screening up to date. - Encouraged fasting laboratory tests in the near future for comprehensive health assessment. - Prostate-Specific Antigen (PSA) testin g agreed upon for prostate screening. Social History Review of Systems - Cardiovascular: Denies chest pain or d iscomfort. - Respiratory: Denies shortness of breat h. - Gastrointestinal: Denies abdominal maroc antonio n, blood in stool, constipation, diarrhea. - Genitourinary: Reports slower urinary stream in mornings; Denies nocturia or incomplete bladder emptying. - Constitutional: Denies fevers, chills. Physical Exam General: Cooperative, healthy appearing, comfortable, no acute distress and well developed Orientation: Patient oriented x3 Limitations: No limitations Head: Normal to inspection Ears: Hearing grossly normal bilaterally Nose: Normal external nose present Face and sinus: Normal facial exam Eyes: Appearance normal, both eyes and all related structures Neck: Normal visual inspection and Yes full ROM Respiratory: Normal respiratory effort and able to speak in complete sentences. Clear to auscultation bilaterally Cardiovascular: Regular rate and rhythm. Normal S1 and S2 GI: Normal to inspection. Soft to palpation and nontender Skin: No rashes or lesions noted Neuro: Patient oriented x3 Extremities: Normal to inspection Results Plan Continued regular consultations for atrial fibrillation management and dermatology visits are advised. We will proceed with PSA testing as agreed for assessing potential prostate concerns, and plan for fasting laboratory tests soon to get a comprehensive view of his health. No acute symptoms were present requiring alteration of his current management strategy. Discussion Notes During the visit, I discussed the importance of continuing with his cardiology follow-ups for atrial fibrillation management. I suggested a PSA test for prostate health as he consented to this but declined a digital rectal examination. We highlighted the relevance of fasting laboratory tests for a clearer understanding of his current health status and ensured understanding of his condition management and prevention strategies. Patient Instructions - Continue seeing your block captain and farm loan inspector as scheduled. - Agree to a PSA test for your prostate screening. - Schedule fasting blood tests in the ne ar future. - Report any new symptoms or changes in your health status. - Maintain the routine that helps manage your conditions. [facility] Medical History Osteoarthritis Lumbar herniated disc Alcohol abuse Atrial flutter Dupuytren contracture Sciatica Surgical History H/O colonoscopy History of cardioversion History of rotator cuff surgery Family History Father Lung cancer Mother No problems noted. Son Mental health disorder Social History Housing: House Alcohol intake: current Alcohol intake frequency: 3 or more drinks per day Alcohol type: wine and hard liquor Patient Tobacco Use Status: Former Tobacco user Years Smoked: 10 years e-Cigarette/Vaping Use: Never Used Second Hand Smoke Exposure: No Current occupational status: employed Cognitive needs: No Hearing needs: No Vision needs: No Questionnaire PHQ-9 Over the last 2 weeks, how often have you been bothered by any of the following problems? 89974 - PHQ-9 Billing: Patient declined-do not bill Source: Developed by Drs. Aleksandr Mendoza, Juliet Rubio, Silas Nicolas and colleagues, with an educational saray from [employer]. Thrive Questionnaire Date Thrive assessed: 10/01/24 I am a: Patient What is your living situation today?: I choose not to answer this question Within the past 12 months, did the food you bought not last and you didn't have the money to get more?: I choose not to answer this question Within the past 12 months, did you worry whether your food would run out before you got money to buy more?: I choose not to answer this question Do you have trouble paying for medicines?: I choose not to answer this question Do you have trouble getting transportation to medical appointments?: I choose not to answer this question Do you have trouble paying your heating and electricity bill?: I choose not to answer this question Do you have trouble taking care of your child, family member or friend?: I choose not to answer this question Do you have trouble with day-to-day activities such as bathing, preparing meals, shopping, managing finances, etc.?: I choose not to answer this question Are you interested in more education?: I choose not to answer this question Please select the resources that you would like help with: None Currently or been in a relationship where the following occur: I choose not to answer THRIVE Score: 0 AUDIT C Alcohol Use Questionnaire (AUDIT-C) 1. How often do you have a drink containing alcohol?: 4 or more times a week 2. How many drinks containing alcohol do you have on a typical day when you are drinking?: 3 or 4 3. How often do you have six or more drinks on one occasion?: Daily or almost daily Total Score: 9 Score Reviewed/Action Taken: Yes (Patient does report drinking wine on a daily basis, he understands dangers ) REECE-7 AMB Questionnaire REECE-7 Date REECE - 7 assessed: 10/01/24 Feeling nervous, anxious, or on edge: 0 = Not at all Not being able to stop or control worryin = Not at all Worrying too much about different things: 0 = Not at all Trouble relaxin = Not at all Being so restless that it is hard to sit still: 0 = Not at all Becoming easily annoyed or irritable: 0 = Not at all Feeling afraid as if something awful might happen: 0 = Not at all Total REECE-7 score (0-4 normal; 5-9 mild; 10-14 moderate; 15-21 severe): 0 Source: Developed by Drs. Aleksandr Mendoza, Juliet Rubio, Silas Nicolas and colleagues, with an educational saray from [employer]. REECE-7 Assessment Billing REECE-7 Assessment Tool: REECE-7 Assessment 32873 Physical exam (Primary Care) Vital Signs: Last Vital Signs Pulse 60 10/01/24 15:28 BP 130/70 10/01/24 15:28 Pulse Ox 97 10/01/24 15:28 Oxygen Delivery Method Room Air 10/01/24 15:28 BMI result Body Mass Index 24.4 Tobacco/Smoking Status: Tobacco use Status Tobacco use date assessed 10/01/24 10/01/24 15:29 Patient Tobacco Use Status Former Tobacco user 10/01/24 15:29 e-Cigarette/Vaping Use Never Used 10/01/24 15:29 Thrive Assessment: Date of Thrive Assessment Date Thrive assessed 10/01/24 10/01/24 15:29 Currently or been in a relationship where the following occur: I choose not to answer Coding Level of Care Code Est Pt Prev Care >65y(70188) Diagnoses Physical exam Z00.00 Screening PSA (prostate specific antigen) Z12.5 Lack of libido F52.0 Vitamin D deficiency E55.9 Additional Codes REECE-7 Assessment Billing - REECE-7 Assessment Tool: REECE-7 Assessment 38541 ([id number]) Assessment & Plan Assessment & Plan (1) Physical exam: Code(s): Z00.00 - Encounter for general adult medical examination without abnormal findings Category: Medical (2) Screening PSA (prostate specific antigen): Code(s): Z12.5 - Encounter for screening for malignant neoplasm of prostate Category: Medical (3) Lack of libido: Code(s): 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 Orders: Orders Complete Blood Count Auto Diff Today Z00.00 - Encounter for general adult medical examination without abnormal findings Comprehensive [place]. Panel Fast Today Z00.00 - Encounter for general adult medical examination without abnormal findings TSH reflex Free T4 Today Z00.00 - Encounter for general adult medical examina tion without abnormal findings UA CC w/rflx Micro + Cult Today Z00.00 - Encounter for general adult medical examination without abnormal findings Vitamin D 25-OH Total Today E55.9 - Vitamin D deficiency, unspecified Lipid Panel Today Z00.00 - Encounter for general adult medical examination without abnormal findings Prostate Specific Antigen Scr Today Z00.00 - Encounter for general adult medical examination without abnormal findings, Z12.5 - Encounter for screening for malignant neoplasm of prostate Testosterone, Free/Total Today 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
[2024-10-01 15:28] VITALS: BP 130/70; PULSE 60; O2SAT 97; BMI 24.4
--- OUTSIDE RECORDS SUMMARY | 2024-10-01 17:44 | XMS_ITS | Patient Health Record ---
Author Organization [facility] Address [address] [place] [address] Care Team Providers Care Sleep Tech Name Role Phone YADIRA CASTANEDA Primary Care Provider Aleksandr Coello [phone] Reason For Referral No Information Medications Medication SIG (Take, Route, Fr equency, Duration) Notes Start Date End Date Status Ibuprofen PRN Active Metoprolol Succinate ER Active Immunizations Vaccine Route Administration Date Status Comme nts Influenza Unknown 04/06/2020 Administered Social History Tobacco Use: Social History Observation Description Date Details (start date - stop date) Former Smoker NA - NA Tobacco Use/Smoking Question Answer Notes Patient is a former smoker When did you start smoking? 31 years old When did you stop smoking? 8 years ago How long has it been since you last smoked? 5-10 years Alcohol Screen Question Answer Notes Did you have a drink contain ing alcohol in the past year? Yes How often did you have a dri nk containing alcohol in the past year? 4 or more times a week (4 points) How many drinks did you have on a typical day when you were drinking in the past year? 3 or 4 drinks (1 point) How often did you have 6 or more drinks on one occasion in the past year? Less than monthly (1 point) Points 6 Interpretation Positive Section Notes: Nonsmoker; 1 bottle of wine every night and an occasional drinker Problems Problem Type SNOMED Code ICD Code Onset Dates Problem Status W/U Status Risk Notes Problem Screening for malignant neoplasm of colon (742907428) Encounter for screening for malignant neoplasm of colon (Z12.11) Active confirmed Problem Diverticular disease of colon (610681276) Diverticulosis of large intestine without perforation or abscess without bleeding (K57.30) Active confirmed Problem Preprocedural examination (304371415304967) Preprocedural examination (Z01.818) Active confirmed Plan Of Treatment Future Test Test Name Order Date COLONOSCOPY 09/07/2020 Insurance Providers Payer Name Payer Address Payer Phone Subscriber Number Group Number Insured Name Patient Relationship to Insured Coverage Start Date Coverage End Date [facility] [address] [place] [phone] [id number] LETICIA WATTS Self - patient is the insured Medical (General) History Medical History History ICD Code Atrial flutter--s/p cardiac ablation--recurred--on 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 Zaragoza Negative screening colonoscopy in 01/2009 Denies NC,DM,CVA,Lung disease,renal dise ase Surgical History Surgery Date(Month/Year) Rotator cuff tear repair--left 2010
== END 2024-10-01 16:53 | disposition home or self-care (01) ==
LOC: HO.HMCC 15:27
PROVIDERS: PCP Nurse Practitioner Family; Visit Provider Nurse Practitioner Family
DX: Z00.00 Encounter for general adult medical examination without abnormal findings (principal); Z12.5 Encounter for screening for malignant neoplasm of prostate; F52.0 Hypoactive sexual desire disorder; E55.9 Vitamin D deficiency, unspecified

== ENCOUNTER → 2024-10-01 15:26 | Outpatient (BNVA) | payer OTHER, SELFPAY | PROVIDERS: PCP Nurse Practitioner Family; Visit Provider Nurse Practitioner Family | DX: Z00.00 Encounter for general adult medical examination without abnormal findings (principal); F52.0 Hypoactive sexual desire disorder; E55.9 Vitamin D deficiency, unspecified | CPT/HCPCS: 96127 ==

== ENCOUNTER 2025-01-26 06:46 | Outpatient (AMB) | payer OTHER, SELFPAY ==
--- OUTSIDE RECORDS SUMMARY | 2025-01-26 06:49 | XMS_ITS | Patient Health Record ---
Author Organization [facility] Address [address] [place] [address] Care Team Providers Care Toolroom Checker Name Role Phone YADIRA CASTANEDA Primary Care Provider Aleksandr Coello [phone] Reason For Referral No Information Medications Medication [...] Problem Screening for malignant neoplasm of colon (760115014) Encounter for screening for malignant neoplasm of colon (Z12.11) Active confirmed Problem Diverticulosis o f large intestine without perforation or abscess without bleeding (K57.30) Active confirmed Problem Preprocedural examination (291744180243599) Preprocedural examination (Z01.818) Active confirmed Plan Of Treatment Future Test Test Name Order Date COLONOSCOPY 09/07/2020 Insurance Providers Payer Name Payer Address Payer Phone Subscriber Number Group Number Insured Name Patient Relationship to Insured Coverage Start Date Coverage End Date [facility] [address] [facility] [place] [address] [phone] [id number] LETICIA WATTS Self - patient is the insured Medical (General) History Medical History History ICD Code Atrial flutter--s/p cardiac ablation--recurred--on 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 Zaragoza Negative screening colonoscopy in 01/2009 Denies DC,DM,CVA,Lung disease,renal dise ase Surgical History Surgery Date(Month/Year) Rotator cuff tear repair--left 2010
--- OUTSIDE RECORDS SUMMARY | 2025-01-26 06:49 | XMS_ITS | Clinical Summary ---
Author Organization [facility] Address [address] [place] [phone] Phone Care Team Providers Care Meat Wrapper Name Role Phone Toribio Mariano LABORER [employer] Primary Care Provider + Allergies No known active allergies Medications flecainide (TAMBOCOR) 100 MG tablet Take 100 mg by mouth every 12 (twelve) hours. 11/28/2020 Active metoprolol succinate (TOPROL-XL) 25 MG 24 hr tablet Take 25 mg by mouth daily. 02/24/2021 Active ibuprofen (ADVIL,MOTRIN) 800 MG tablet TAKE ONE TABLET BY MOUTH EVER 6 HOURS NEEDED FOR PAIN. 02/22/2023 Active Social History Tobacco Use Types Packs/Day Years Used Date Smoking Tobacco: Former Cigarettes Q uit: 2013 Smokeless Tobacco: Never Alcohol Use Standard Drinks/Week Comments Yes 0 (1 standard drink = 0.6 oz pur e alcohol) socially Education Answer Date Recorded Are you interested in more education? Not on baron e 10/19/2022 Are you concerned about learning? Not on file 10/19/2022 No 10/19/2022 No 10/19/2022 Digital Access Answer Date Recorded No 11/17/2022 No 11/17/2022 Reliable internet access at home? Not on file 11/17/2022 Device with a working camera? Not on file Sex and Gender Information Value Date Recorded Sex Assigned at Not on file Legal Sex Male 9:53 PM EDT Gender Identity Not on file Sexual Orientation Not on file Plan of Treatment Health Maintenance Due Date Last Done Comments LIPID PANEL 1956 DEPRESSION SCREENING 1968 SMOKING Hx and SMOKELESS TOB ACCO SCREENING 1969 HEPATITIS C SCREENING 1974 COLOGUARD 2001 COLONOSCOPY 2001 COLORECTAL CANCER SCREENING 2001 FIT TEST 2001 FOBT 2001 SIGMOIDOSCOPY 2001 VIRTUAL COLONOSCOPY 2001 PNEUMOCOCCAL VACCINES (50+ y ears) (1 of 1 - PCV) 2006 ABDOMINAL AORTIC ANEURYSM (A AA) SCREENING 2021 ZOSTER VACCINES (2 of 2) 07/28/2021 06/02/2021 COVID-19 VACCINE (1 - 2023-2 5 season) 2024 Adult Td,Tdap Booster 10/25/2024 10/25/2014 RSV VACCINE (1 - 1-dose 75+ series) 2031 HEPATITIS A VACCINES Aged Out No long er eligible based on patient's age to complete this topic HIB VACCINES Aged Out No longer eligi ble based on patient's age to complete this topic MENINGOCOCCAL VACCINES (ACWY) Aged Out No longer eligible based on patient's age to complete this topic MENINGOCOCCAL VACCINES (B) Aged Out N o longer eligible based on patient's age to complete this topic Medical Devices Not on file Insurance [address] [place], [place] [address] [place], [place] [address] [place] [place] [address] [place] [address]O [facility] Address: [address] [address] Care Teams Meat Wrapper Relationship Specialty Start Date End Date Toribio Mariano NP [address] [facility] [place] [address] [email or web address] PCP - General Nurse Practitioner 08/13/22 Additional Source Comments The information contained in this document represents components of the legal health record. It is not the complete legal health record.[facility]
--- NOTE | 2025-01-26 08:09 | A.OFFPC_ITS ---
Intake Visit Reasons: leg cramping Allergies No Known Allergies Allergy (Verified 01/26/25 08:12) Medication List - Last Reconciled 01/26/25 by JL CarterP- apixaban (Eliquis) 5 mg PO BID buspirone 5 mg PO BID 30 days metoprolol succinate ER 25 mg PO DAILY scopolamine base 1 patch transdermal Q72H PRN Tobacco use date assessed: 10/01/24 Dental Screening Dental Screen Date: 10/01/24 HPI leg cramping HPI Details History of Present Illness The patient is a 69-year-old male presenting with nocturnal leg cramps. These cramps are primarily located in the hamstring region and occur mostly at night, described as severe. 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 The patient has tried magnesium supplementation, which provided some relief. He has been advised to take magnesium oxide 400 mg at night and to start a vitamin B complex, along with maintaining adequate hydration. Additionally, the patient reports experiencing anxiety, which is exacerbated by personal and professional stressors, including an upcoming wedding for his daughter and issues with his son. He has started limiting his news consumption and is watching more baseball as a coping mechanism. The patient denies any suicidal or homicidal ideation. Review of Systems - Musculoskeletal: Reports severe noctur nal leg cramps in the hamstring region. - Psychiatric: Reports anxiety exacerbat ed by personal and professional stressors. Denies suicidal or homicidal ideation. Plan For the management of nocturnal leg cramps, the patient will continue with magnesium oxide 400 mg at night and start a vitamin B complex to potentially alleviate symptoms. 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 To address anxiety, the patient will begin a low dose of buspirone, and he is encouraged to continue limiting news consumption and engage in relaxing activities such as watching baseball. The patient is also reminded to monitor his stress levels, especially with upcoming personal events, and to seek support as needed. Discussion Notes I discussed with the patient the management of his nocturnal leg cramps, emphasizing the importance of magnesium supplementation and hydration. For his anxiety, we talked about starting buspirone and the benefits of reducing stressors by limiting news consumption and engaging in leisure activities. We also reviewed the importance of monitoring stress levels and seeking support when needed, especially with upcoming personal events. Patient Instructions - Take magnesium oxide 400 mg at night. - Start a vitamin B complex daily. - Stay hydrated throughout the day. - Begin taking buspirone as prescribed. - Limit news consumption and engage in r elaxing activities. - Monitor stress levels and seek support if needed. [facility] Medical History Arthritis of left shoulder Osteoarthritis Lumbar herniated disc Alcohol abuse Atrial flutter Dupuytren contracture Sciatica Surgical History H/O colonoscopy History of cardioversion History of rotator cuff surgery Family History Father Lung cancer Mother No problems noted. Son Mental health disorder Social History Housing: House Alcohol intake: current Alcohol intake frequency: 3 or more drinks per day Alcohol type: wine and hard liquor Patient Tobacco Use Status: Former Tobacco user Years Smoked: 10 years e-Cigarette/Vaping Use: Never Used Second Hand Smoke Exposure: No Current occupational status: employed Cognitive needs: No Hearing needs: No Vision needs: No Questionnaire Thrive Questionnaire Date Thrive assessed: 03/31/24 I am a: Patient What is your living situation today?: I choose not to answer this question Within the past 12 months, did the food you bought not last and you didn't have the money to get more?: I choose not to answer this question Within the past 12 months, did you worry whether your food would run out before you got money to buy more?: I choose not to answer this question Do you have trouble paying for medicines?: I choose not to answer this question Do you have trouble getting transportation to medical appointments?: I choose not to answer this question Do you have trouble paying your heating and electricity bill?: I choose not to answer this question Do you have trouble taking care of your child, family member or friend?: I choose not to answer this question Do you have trouble with day-to-day activities such as bathing, preparing meals, shopping, managing finances, etc.?: I choose not to answer this question Are you interested in more education?: I choose not to answer this question Please select the resources that you would like help with: None Currently or been in a relationship where the following occur: I choose not to answer THRIVE Score: 0 REECE-7 AMB Questionnaire REECE-7 Date REECE - 7 assessed: 10/01/24 Source: Developed by Drs. Aleksandr Mendoza, Juliet Rubio, Silas Nicolas and colleagues, with an educational saray from [employer]. Physical exam (Primary Care) Tobacco/Smoking Status: Tobacco use Status Tobacco use date assessed 10/01/24 10/01/24 15:29 Patient Tobacco Use Status Former Tobacco user 10/01/24 15:29 e-Cigarette/Vaping Use Never Used 10/01/24 15:29 Thrive Assessment: Date of Thrive Assessment Date Thrive assessed 03/31/24 01/26/25 06:46 Currently or been in a relationship where the following occur: I choose not to answer Telehealth Telehealth Telehealth Platform: [facility] Location of provider rendering services: practice address Location of patient: address on file Patient Identification confirmed using: Name, : Yes Telehealth method: video Patient verbally consented to treatment: Yes Patient verbally consented to billing insurance company: Yes Patient informed of any privacy concerns related to visit: Yes Minutes spent on Phone/Video with Pt.: 15 Coding Level of Care Code Tele Est Pt Level 3 (40779) Diagnoses Leg cramps R25.2 Anxiety F41.9 Assessment & Plan Assessment & Plan (1) Leg cramps: Code(s): R25.2 - Cramp and spasm Category: Medical (2) Anxiety: Code(s): F41.9 - Anxiety disorder, unspecified Category: Medical Plan . Medications: New buspirone 5 mg PO BID 60 tabs 2RF 30 days buspirone 5 mg PO BID 60 tabs 2RF 30 days
== END 2025-01-26 08:38 | disposition home or self-care (01) ==
LOC: HO.HMCC 06:47
PROVIDERS: PCP Nurse Practitioner Family; Visit Provider Nurse Practitioner Family
DX: R25.2 Cramp and spasm (principal); F41.9 Anxiety disorder, unspecified

== ENCOUNTER 2025-04-07 10:36 | Outpatient (REF) | payer OTHER, SELFPAY ==
--- OUTSIDE RECORDS SUMMARY | 2025-04-07 12:40 | XMS_ITS | Patient Health Record ---
Author Organization [facility] Address [address] [place] [address] Care Team Providers Care Mail Distributor Name Role Phone YADIRA CASTANEDA Primary Care Provider Aleksandr Coello [phone] Reason For Referral No Information Medications Medication [...] Problem Screening for malignant neoplasm of colon (219760315) Encounter for screening for malignant neoplasm of colon (Z12.11) Active confirmed Problem Diverticular disease of colon (800390404) Diverticulosis of large intestine without perforation or abscess without bleeding (K57.30) Active confirmed Problem Preprocedural examination (320829164035333) Preprocedural examination (Z01.818) Active confirmed Plan Of Treatment Future Test Test Name Order Date COLONOSCOPY 09/07/2020 Insurance Providers Payer Name Payer Address Payer Phone Subscriber Number Group Number Insured Name Patient Relationship to Insured Coverage Start Date Coverage End Date [facility] [address] [place] [phone] [id number] LETICIA WATTS Self - patient is the insured Medical (General) History Medical History History ICD Code Atrial flutter--s/p cardiac ablation--recurred--on 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 Zaragoza Negative screening colonoscopy in 01/2009 Denies AL,DM,CVA,Lung disease,renal dise ase Surgical History Surgery Date(Month/Year) Rotator cuff tear repair--left 2010
--- OUTSIDE RECORDS SUMMARY | 2025-04-07 12:40 | XMS_ITS | Clinical Summary ---
Author Organization [facility] Address [address] [address] Phone Care Team Providers Care Sales Exec Name Role Phone Toribio Mariano FIRE CAPTAIN MARINE Primary Care Provider + Allergies No known [...] DEPRESSION SCREENING 1968 SMOKING Hx and SMOKELESS TOBACCO SCREENING 1969 HEPATITIS C SCREENING 1974 COLOGUARD 2001 COLONOSCOPY 2001 COLORECTAL CANCER SCREENING 2001 FIT TEST 2001 FOBT 2001 SIGMOIDOSCOPY 2001 VIRTUAL COLONOSCOPY 2001 PNEUMOCOCCAL VACCINES (50+ years) (1 of 1 - PCV) 2006 ABDOMINAL AORTIC ANEURYSM (AAA) SCREENING 2021 ZOSTER VACCINES (2 of 2) 07/28/2021 06/02/2021 Adult Td,Tdap Booster 10/25/2024 10/25/2014 INFLUENZA VACCINE (#1) 2025 , 04/20/2019, 05/17/2018 COVID-19 VACCINE (1 - 2024-2 6 season) 2025 RSV VACCINE (1 - 1-dose 75+ series) [...] topic Medical Devices Not on file [facility] [address] [place] [address] [employer] Care Teams Sales Exec Relationship Specialty Start Date End Date Toribio Mariano NP [address] [place] [id number] PCP - General Nurse Practitioner 08/13/22 Additional Source Comments The information contained in this document represents components of the legal health record. It is not the complete legal health record.[facility]
[2025-04-07 13:05] LABS: MANUAL DIFF FLAG NO
[2025-04-07 13:15] LABS: Appearance Urine Clear; Glucose Urine UA Negative (Negative); PH 7.5 (5.0-9.0); Specific Gravity - Urine <= 1.005 (1.005-1.025)
[2025-04-07 13:16] LABS: Hematocrit 43.8 % (42.0-52.0); Hemoglobin 13.8 g/dl (14.0-18.0); Imm Gran Abs Auto 0.02 X10*3/uL (0.00-0.03); Imm Gran Pct Auto 0.3 % (0.0-0.4); Lymphocytes Absolute Auto 1.9 X10*3/uL (1.2-4.9); Mean Corpuscular HGB Conc 31.5 g/dl (31.0-36.0); Mean Corpuscular Hemoglobin 30.1 pg (27.0-33.0); Mean Corpuscular Volume 95.4 fL (80.0-98.0); NRBC Abs Auto 0.000 X10*3/uL (0.0-0.012); NRBC Pct Auto 0.0 /100WBC (0.0-0.2); Platelet Count 278 X10*3/uL (160-400); Red Blood Count 4.59 X10*6/uL (4.60-5.80); White Blood Count 5.8 X10*3/uL (4.8-10.8)
[2025-04-11 17:18] LABS: Testosterone, Free 72.4 pg/mL (35.0-155.0)
== END 2025-04-07 10:37 | disposition home or self-care (01) ==
LOC: HO.HMGCLDS 10:36
PROVIDERS: PCP Nurse Practitioner Family; Visit Provider Nurse Practitioner Family
DX: Z00.00 Encounter for general adult medical examination without abnormal findings (principal); F52.0 Hypoactive sexual desire disorder; E55.9 Vitamin D deficiency, unspecified; Z12.5 Encounter for screening for malignant neoplasm of prostate; Z13.29 Encounter for screening for other suspected endocrine disorder
CPT/HCPCS: 36415; 81003; 82306; 84153; 84402; 84403; 84443; 85025

== ENCOUNTER 2025-04-08 13:25 | Outpatient (AMB) | payer OTHER, SELFPAY ==
[2025-04-08 13:27] VITALS: BP 140/86; PULSE 61; RESP 16; O2SAT 96; BMI 25.4
--- NOTE | 2025-04-08 13:27 | A.OFFPC_ITS ---
Vital Signs 04/08/25 13:27 04/08/25 14:00 Height 6 ft Weight 187 lb BMI 25.4 BP 140/86 H 124/84 Blood Pressure Location Lt brachial Lt brachial Position Sitting Sitting Respiration 16 Pulse 61 Pulse Source Pulse Oximeter Pulse Oximetry (%) 96 Oxygen Delivery Method Room Air Intake Visit Reasons: 6m f/u Radio Personality Required: No Accompanied by: Self / Same As Patient Allergies No Known Allergies Allergy (Verified 01/26/25 08:12) Medication List - Last Reconciled 04/08/25 by JL CarterP- apixaban (Eliquis) 5 mg PO BID buspirone 5 mg PO BID 30 days metoprolol succinate ER 25 mg PO DAILY scopolamine base 1 patch transdermal Q72H PRN Tobacco use date assessed: 04/08/25 Fall risk assessment: No Falls in past year Last assessed Fall Risk: 04/08/25 Dental Screening Dental Screen Date: 04/08/25 Did you have a dental visit in the last 12 months?: Yes Did you have a dental problem in the last 6 months where you did not have access to dental care?: No Was dental information given to patient?: Patient has dentist HPI 6m f/u HPI Details Chief Complaint The patient presents with hypertension management concerns. History of Present Illness The patient is a 69-year-old male presenting with hypertension management. His blood pressure has been more stable recently, and he remains fairly active without significant chest pain or dyspnea. The patient reports experiencing chest discomfort, which has been evaluated previously with cardiac involvement ruled out. A very slight murmur was detected during the examination, prompting a recommendation for an echocardiogram. He is under regular cardiology care. Recent laboratory tests indicated very slight anemia with a hemoglobin level of 13.8 g/dL, which is normocytic. The patient also reported fatigue and reduced muscle development, leading to a pending testosterone level assessment. The patient consumes wine and intermittently uses marijuana. Social History - Substance use: Drinks wine and intermi ttently uses marijuana Health Maintenance - Regular cardiology follow-up for cardi ovariular health Review of Systems - Cardiovascular: Reports chest discomfo rt. Denies significant chest pain or dyspnea. Physical Exam General: Cooperative, healthy appearing, comfortable, no acute distress and well developed Orientation: Patient oriented x3 Limitations: No limitations Head: Normal to inspection Ears: Hearing grossly normal bilaterally Nose: Normal external nose present Face and sinus: Normal facial exam Eyes: Appearance normal, both eyes and all related structures Neck: Normal visual inspection and Yes full ROM Respiratory: Normal respiratory effort and able to speak in complete sentences. Clear to auscultation bilaterally Cardiovascular: Regular rate and rhythm. Normal S1 and S2. Very slight murmur heard GI: Normal to inspection. Soft to palpation and nontender Skin: No rashes or lesions noted Neuro: Patient oriented x3 Extremities: Normal to inspection Results - Labs: Hemoglobin 13.8 g/dL, normocytic anemia - Labs: PSA within normal limits, Vitami n D levels elevated, Thyroid function normal Plan 1. Hypertension The patient's blood pressure is more stable, and he remains active without significant symptoms. Continued monitoring and management of hypertension are recommended. 2. Chest Discomfort The patient experiences chest discomfort, with cardiac causes previously ruled out. A very slight murmur was detected, and an echocardiogram is recommended for further evaluation. 3. Anemia The patient has very slight normocytic anemia with a hemoglobin level of 13.8 g/dL Discussion Notes I discussed with the patient the stability of his blood pressure and the importance of continued monitoring. We also reviewed the slight murmur detected during the examination and the need for an echocardiogram to further evaluate his cardiac status. 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 Patient Instructions - Continue monitoring blood pressure reg ularly. - Follow up with ladies suit operator as schedul ed. - Schedule an echocardiogram for further evaluation of heart murmur. [facility] Medical History Arthritis of left shoulder Osteoarthritis Lumbar herniated disc Alcohol abuse Atrial flutter Dupuytren contracture Sciatica Surgical History H/O colonoscopy History of cardioversion History of rotator cuff surgery Family History Father Lung cancer Mother No problems noted. Son Mental health disorder Social History Housing: House Alcohol intake: current Alcohol intake frequency: 3 or more drinks per day Alcohol type: wine and hard liquor Patient Tobacco Use Status: Former Tobacco user Years Smoked: 10 years e-Cigarette/Vaping Use: Never Used Second Hand Smoke Exposure: No Current occupational status: employed Cognitive needs: No Hearing needs: No Vision needs: No Questionnaire PHQ-9 Over the last 2 weeks, how often have you been bothered by any of the following problems? 1. Little interest or pleasure in doing things: not at all 2. Feeling down, depressed, or hopeless: not at all 3. Trouble falling or staying asleep, or sleeping too much: not at all 4. Feeling tired or having little energy: not at all 5. Poor appetite or overeating: not at all 6. Feeling bad about yourself - or that you are a failure or have let yourself or your family down: not at all 7. Trouble concentrating on things, such as reading the newspaper or watching television: not at all 8. Moving or speaking so slowly that other people could have noticed. Or the opposite - being so fidgety or restless that you have been moving around a lot more than usual: not at all 9. Thoughts that you would be better off or of hurting yourself in some way: not at all Total score: 0 Depression Screening Interpretation: Negative Depression Screening Done: Yes 76596 - PHQ-9 Billing: Yes Source: Developed by Drs. Aleksandr Mendoza, Juliet Rubio, Silas Nicolas and colleagues, with an educational saray from [employer]. Thrive Questionnaire Date Thrive assessed: 04/08/25 AUDIT C Alcohol Use Questionnaire (AUDIT-C) 1. How often do you have a drink containing alcohol?: Never Total Score: 0 REECE-7 AMB Questionnaire REECE-7 Date REECE - 7 assessed: 04/08/25 Feeling nervous, anxious, or on edge: 0 = Not at all Not being able to stop or control worryin = Not at all Worrying too much about different things: 0 = Not at all Trouble relaxin = Not at all Being so restless that it is hard to sit still: 0 = Not at all Becoming easily annoyed or irritable: 0 = Not at all Feeling afraid as if something awful might happen: 0 = Not at all Total REECE-7 score (0-4 normal; 5-9 mild; 10-14 moderate; 15-21 severe): 0 Source: Developed by Drs. Aleksandr Mendoza, Juliet Rubio, Silas Nicolas and colleagues, with an educational saray from [employer]. REECE-7 Assessment Billing REECE-7 Assessment Tool: REECE-7 Assessment 11226 Physical exam (Primary Care) Vital Signs: Last Vital Signs Pulse 61 04/08/25 13:27 Resp 16 04/08/25 13:27 BP 140/86 H 04/08/25 13:27 Pulse Ox 96 04/08/25 13:27 Oxygen Delivery Method Room Air 04/08/25 13:27 BMI result Body Mass Index 25.4 Tobacco/Smoking Status: Tobacco use Status Tobacco use date assessed 04/08/25 04/08/25 13:34 Patient Tobacco Use Status Former Tobacco user 04/08/25 13:28 e-Cigarette/Vaping Use Never Used 04/08/25 13:28 PHQ-9: PHQ-9 Score PHQ-9: Total score 0 04/08/25 14:00 Depression Screening Interpretation: Negative Thrive Assessment: Date of Thrive Assessment Date Thrive assessed 04/08/25 04/08/25 13:28 Coding Level of Care Code Est Pt Level 3 (50267) Diagnoses HTN (hypertension) I10 Systolic murmur R01.1 Additional Codes REECE-7 Assessment Billing - REECE-7 Assessment Tool: REECE-7 Assessment 98303 ([id number]) PHQ-9 - 59176 - PHQ-9 Billing: Yes ([id number]) Assessment & Plan Assessment & Plan (1) HTN (hypertension): Code(s): I10 - Essential (primary) hypertension Category: Medical (2) Systolic murmur: Code(s): R01.1 - Cardiac murmur, unspecified Category: Medical Plan . Orders: Orders Comprehensive [place]. Panel Fast Today I10 - Essential (primary) hypertension CA echo transesophageal Today R01.1 - Cardiac murmur, unspecified Lipid Panel Today I10 - Essential (primary) hypertension
[2025-04-08 14:00] VITALS: BP 124/84
--- OUTSIDE RECORDS SUMMARY | 2025-04-08 16:50 | XMS_ITS | Data Portability ---
Author Organization [facility], [facility] Address [address] [place] [address] Care Team Providers Care Technical Aid Name Role Phone YADIRA CASTANEDA Primary Care Provider [phone] Assessment Encounter Date Assessment Date Assessment LastModified by Organization Details LastModified Time 09/30/2024 09/30/2024 Dx:left shoulder glenohumeral arthritis Interval History:69-year-old gentleman, left shoulder pain long-standing and progressive, was scoped back in 2009. SocHx: nonsmoker, nondrinker Past Medical/Surgical History/Meds/Allerg ies reviewed and charted ROS: negative Physical Exam: afebrile, vital signs stable, in no apparent distress, oriented to person/place/time. Gait symmetric. Skin intact without erythema. Heart RRR Lungs: clear Abdomen soft, nontender. leftSHOULDER: no redness, warmth, deformity. Range of motion 80%full in all planes with no stiffness, pain throughout the arc. Strength 5/5 all muscle groups. Apprehension negative. Impingement sign negative. Acromioclavicular joint nontender without irritability with cross body adduction. Neurovascular Exam wnl. Contralateral SHOULDER: no redness, warmth, deformity. Range of motion full in all planes with no stiffnes. Strength 5/5 all muscle groups. Apprehension negative. Impingement sign negative. Acromioclavicular joint nontender without irritability to cross body adduction. Neurovascular Exam wnl. New Studies: 4 views left shoulder, advanced glenohumeral arthritis Impression:left shoulder glenohumeral arthritis Plan: 1.ultrasound-guided injection arranged, follow-up p.r.n., did discuss role for anatomic arthroplasty as needed [facility] speech recognition forge shop supervisor software was used to create portions of this document. An attempt at proofreading has been made to minimize errors. Please call for corrections. [email or web address] Not available 09/30/2024 16:12:39 Plan of Treatment Reminders Order Date Submit Date Provider Last Modified By Organization Details Last Modified Time Details Appointments None recorded. Lab None recorded. Referral None recorded. Procedures None recorded. Surgeries None recorded. Imaging XR, shoulder, 2 or more view - 4v lt shoulder with lat cspine 212 2024 025 [email or web address] [facility], [address], [address], [place], [address], 5 15:42:27 XR, cervical spine, 1 view 2024 025 [email or web address] [facility], [address], [address], [place], [address], 5 15:42:27 Medication Orders None recorded. Patient TargetsNo targets recorded. Patient InstructionsNo instructions recorded. Reason for Referral None Reported. Results Created Date Observation Date Name Description Value Unit Range Abnormal Flag Note LastModifiedBy Organization Detail LastModifiedTime 10/01/1909/30/2024 XR, cervi lulu spine , 1 view [email or web address]:/ [email or web address] ?Encry pted=s hAaTro YD8dLq bEUv6g %2BXZw aYqtaq 0bqfl% 2Fg9IQ a4ajBk vP9nXo QUaueC m3YtLR FvZlgJ JJ8mAn HZtai3 4f2691 AC0KqY 3mAVKG jKiQtr MwF INTERFACE [facility] [address], [place], [address], 09/30/2024 15:16:10 10/01/1909/30/2024 XR, cervi lulu spine , 1 view [email or web address]:/ [email or web address] ?Encry pted=s hAaTro YD8dLq bEUv6g %2BXZw aYqtaq 0bqfl% 2Fg9IQ a4ajBk vP9nXo QUaueC m3YtLR FvZl JJ8Ashland HZtai3 5j7512 AC0KqY 3mAVKG jKiQtr MwF INTERFACE [facility] [address], [place], [address], 09/30/2024 15:16:12 10/01/19 25 09/30/2024 XR, shoul tang, 2 or more view [email or web address] ?Encry pted=s hAaTro YD8dLq bEUv6g %2BXZw aYqtaq 0bqfl% 2Fg9IQ a4ajBk vP9nXo QUaueC m3YtLR FvZl JJ8mAn HZtai3 4d1270 AC0KqY 3mAVKG iKiQtr MwF INTERFACE [facility] [address], [place], [address], 09/30/2024 15:25:05 10/01/19 25 09/30/2024 XR, shoul tang, 2 or more view [email or web address] ?Encry pted=s hAaTro YD8dLq bEUv6g %2BXZw aYqtaq 0bqfl% 2Fg9IQ a4ajBk vP9nXo QUaueC m3YtLR Zl JJ8mAn HZtai3 4a0381 AC0KqY 3mAVKG iKiQtr MwF INTERFACE [facility] [address] [facility] [address], [place], [address], 09/30/2024 15:25:06 Result Notes Documentation Provider Name and Address Organization Details Recorded Time Xr, Cervical Spine, 1 View : [email or web address] Encrypted=etRaGmmNB9jGgjG Uv6g%8XWTzbSthpu5zvfz%2Fg 0UQk8xeSppY8bHkTVpceJe4Ma CWUjQtfWKB7dUxJNgqu02c665 3HZ9NuR9oHAKIgAuMfvEeD Not Available [facility] 09/30/2024 15:16: 11 Xr, Cervical Spine, 1 View : [email or web address] Encrypted=ijYiVybCU2kBotW Uv6g%3TMOvwYovba9acdz%2Fg 0JSi0nuSoiB9cDbPCnthSe5Jq DIRvPvkGQA5rOqRGrqe38x885 2BA7ZlF3qBOKKpGyZfwLiO Not Available [facility] 09/30/2024 15:16: 12 Xr, Shoulder, 2 Or More View : [email or web address]? Encrypted=vqPxSgfHZ2pNidR Uv6g%3ARLugYcjqq7xwlq%2Fg 9YBv2zpTuxW0rRbRFrhfKk7Pl RMVjIokXKN3eWjGKlfc33a385 7ML3DcQ4gJZVYyAaQwrZpR Not Available [facility] 09/30/2024 15:25: 06 Xr, Shoulder, 2 Or More View : [email or web address] Encrypted=naWdZkhRE4bTzcO Uv6g%5OMJugBgubm0isal%2Fg 2MNg3oeBbrI0bTqCGyzrGa5Pr TRBvYcyMGS2kCeXNbid17z608 9MT5EnD2tRSLLfPiDnwPpR Not Available [facility] 09/30/2024 15:25: 07 Problems Name Problem SNOMED Code Status Onset Date Resolution Date Notes Provider Name and Address Organization Details Recorded Time No complaints 288415428 Active Status : 'A'; Not Available [facility] 09:21:24 Inflammation of joint of left shoulder region Active 2024 Jayson Manzo PA-C [address] [place], [place] [address]div[facility]Former[facility] [address], [place], [address] , [facility] 19:15:17 Problem Notes None recorded. Procedures Surgical History Date Name Laterality Status Provider Name and Address Organization Details Recorded Time Sports Shoulder 4&1 w/US completed Jayson Manzo PA-C [address], [place], [address], [facility] 10/07/2024 19:15:05 Imaging Results None recorded. Procedure Notes None recorded. Medical Equipment None Reported. Allergies No known drug allergies Medications Name Sig Start Date Stop Date Status Note LastModified by Organization Details LastModified Time amoxicillin 500 mg capsule TAKE 1 CAPSULE BY MOUTH THREE TIMES DAILY UNTIL FINISHED active Not Available Not Available No t Available pseudoephed rine-guaife nesin ER 80-700 mg tablet,exte nded release Percocet 5-325MG Tablet 1 every bedtime 07/05 completed Statu s: 'Disc ontin ued'; Not Available Not Available Not Available flecainide 100 mg tablet TAKE 1 TABLET BY MOUTH EVERY 12 HOURS active Not Available Not Available No t Available metoprolol succinate ER 25 mg tablet,exte nded release 24 hr TAKE 1 TABLET BY MOUTH DAILY active Not Available Not Available No t Available sodium fluoride 1.1 % dental paste USE A PEA SIZED AMOUNT NIGHTLY BEFORE BEDTIME. DO NOT RINSE. active Not Available Not Available No t Available Eliquis 5 mg tablet TAKE 1 TABLET BY MOUTH TWICE DAILY active Not Available Not Available No t Available Vitals Date Recorded Body height Body mass index (BMI) Body weight Provider Name and Address Organization Details Last Updated DateTime 09/30/2024 182.88 cm 24.7 kg/m2 54620.81 g ANISH CHRISTINE [facility] 09/30/2024 15:10:34 Date Recorded Body height Body mass index (BMI) Body weight Provider Name and Address Organization Details Last Updated DateTime 10/07/2024 182.88 cm 24.7 kg/m2 81777.81 g Jayson Manzo PA-C [address], [place], [address], [facility] 10/07/2024 14:27:35 Social History Question Answer Notes LastModified by Organizat ion Details LastModified Time Tobacco Smoking Status Never Smoker Jayson Manzo PA-C [address], [place], [address], [facility] 10/07/2024 14:28:28 What Is Your Relationship Status? Single Information not available 10/07/2024 Sex: Unknown Functional Status Question Answer Note LastModified by Organizat ion Details LastModified Time How many times per week do you consume alcohol? 5-7 times per week Information not available 10/07/2024 Do you use any illicit or recreational drugs? No Information not available 10/07/2024 What is your level of alcohol consumption? Moderate Information not available 10/07/2024 Mental Status None recorded. Family History Nothing Reported. Medical History Condition Response Allergies/Hayfever N Coronary Artery Disease N Anxiety/Depression N Breathing or lung disorders N Emphysema N Nerve Disorders N Thyroid Problems N COPD N Pacemaker N Anemia N Kidney/Bladder Problems N Vascular Disease N Heart Trouble Y Heart Attack ([place]) N Gastrointestinal Disease N Cholesterol N Diabetes N Autoimmune disease N Bleeding Disorder N Inflammatory Joint disease N Orthotics N Arthritis N Seizures/Epilepsy N Blood Clot N AIDS/HIV N Congestive Heart Failure (CHF) N Acid Reflux (GERD) N Cancer N Stroke N Asthma N Circulation Problems N Peripheral Vascular Disease N Sleep Apnea N Hepatitis N Heart Disease N Rheumatoid Arthritis N Arrhythmia N Pulmonary Embolism N Headaches N Fibromyalgia N Hypertension Y Osteoporosis N Past Encounters Encounter ID Performer Location Encounter Start Date Encounter Closed Date Diagnosis/Indication Diagnosis SNOMED-CT Code Diagnosis ICD10 Code Diagnosis IMO Codes Diagnosis Note [id number] MD AMARILYS Conway [address] [place] [address] 09/30/2024 14:21:07 10/08/2024 15:42:27 Pain of left shoulder joint 0946812456 8179978 M25.512 [id number] JENNIFER Duffy [address] [place] [address] 10/07/2024 13:59:26 10/15/2024 09:09:01 Inflammation of joint of left shoulder region 7604661072 72068 M19.012 64984508 Health Concerns Section Related Observation LastModified by Organization Detai ls LastModified Time None Recorded Concern Status LastModified by Organization Details LastModified Time None Recorded Advance Directives Directive None Recorded Payers Insurance Date Sequence Insurance Name Policy Number Policy Woodall Covered Member ID Woodall Member ID Guarantor Name 10/15/2024 1 [facility] [id number] Margarito Mckeon [id number] Margarito Mckeon Notes Date Note Type Note Provider Name and Address Organization Details Recorded Time 10/07/2024 text/html I am seeing the patient today under the supervision of Dr. Moreno who was available but who did not see the patient. 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 Most recently was evaluated by Dr. Figueroa has established advanced glenohumeral joint arthritis and comes in today wanted to discuss the role of ultrasound-guided injection. PAST MEDICAL/SURGICAL HISTORY Current medications per intake sheet. PHYSICAL FINDINGS The patient is well appearing, in no apparent distress, alert and oriented to person, place and time. Gait is symmetric. No significant swelling, warmth or erythema about either shoulder. Examination of the left shoulder demonstrates forward elevation 175 , external rotates 45 , internal rotates back pocket with mild discomfort, mild crepitance with patella manipulation, AC joint tenderness, rotator cuff strength 4/5 with horizontal elevation, 4/5 external rotation, 4/5 resisted belly press test, bicipital groove is mildly irritable, no apprehension in positions of instability, normal scapular mechanics. Cervical Exam demonstrates limited ROM without radicular symptoms. Peripheral, vascular, lymphatic examination, skin, neurologic coordination, reflexes, sensation are within normal limits. X-ray findings: 4 views ordered and independently reviewed previously at [facility] of the left shoulder findings include advanced glenohumeral joint arthritis with inferior humeral head osteophyte present. ASSESSMENT: Left shoulder glenohumeral joint osteoarthritis PLAN: Different treatment options reviewed, ultimately decision was made to go forward with ultrasound-guided injection today. Potential frequency of this was discussed with the patient, all questions answered he will follow-up as symptoms require. [facility] speech recognition forge shop supervisor software was used to create portions of this document. An attempt at proofreading has been made to minimize errors. Please call for corrections Jayson Manzo PA-C [address] [place] [address] [address], [place], [address], [facility] 10/07/2024 19:15:47
--- OUTSIDE RECORDS SUMMARY | 2025-04-08 16:50 | XMS_ITS | Patient Health Record ---
Author Organization [facility] Address [address] [place] [address] Care Team Providers Care Chief Digital Media Officer Name Role Phone YADIRA CASTANEDA Primary Care Provider Aleksandr Coello [phone] Reason For Referral No Information Medications Medication [...] Problem Screening for malignant neoplasm of colon (641466142) Encounter for screening for malignant neoplasm of colon (Z12.11) Active confirmed Problem Diverticular disease of colon (734127197) Diverticulosis of large intestine without perforation or abscess without bleeding (K57.30) Active confirmed Problem Preprocedural examination (591857317594038) Preprocedural examination (Z01.818) Active confirmed Plan Of Treatment Future Test Test Name Order Date COLONOSCOPY 09/07/2020 Insurance Providers Payer Name Payer Address Payer Phone Subscriber Number Group Number Insured Name Patient Relationship to Insured Coverage Start Date Coverage End Date [facility] [address] [place] [phone] [id number] LETICIA WATTS Self - patient is the insured Medical (General) History Medical History History ICD Code Atrial flutter--s/p cardiac ablation--recurred--on 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 Zaragoza Negative screening colonoscopy in 01/2009 Denies GA,DM,CVA,Lung disease,renal dise ase Surgical History Surgery Date(Month/Year) Rotator cuff tear repair--left 2010
--- OUTSIDE RECORDS SUMMARY | 2025-04-08 16:50 | XMS_ITS | Clinical Summary ---
Author Organization [facility] Address [address] [address] Phone Care Team Providers Care Grinder Operator External Tool Name Role Phone Toribio Mariano MICRO LAB ANALYST Primary Care Provider + Allergies No known [...] Medical Devices Not on file Insurance [facility] [address] [place], [place] [id number] [facility] [employer] H[employer] Care Teams Grinder Operator External Tool Relationship Specialty Start Date End Date Toribio Mariano NP [address] [facility] [address] [place] [address] PCP - General Nurse Practitioner 08/13/22 Additional Source Comments The information contained in this document represents components of the legal health record. It is not the complete legal health record.[facility]
== END 2025-04-08 14:39 | disposition home or self-care (01) ==
LOC: HO.HMCC 13:25
PROVIDERS: PCP Nurse Practitioner Family; Visit Provider Nurse Practitioner Family
DX: I10 Essential (primary) hypertension (principal); R01.1 Cardiac murmur, unspecified

== ENCOUNTER → 2025-04-08 13:25 | Outpatient (BNVA) | payer OTHER, SELFPAY | PROVIDERS: PCP Nurse Practitioner Family; Visit Provider Nurse Practitioner Family | DX: I10 Essential (primary) hypertension (principal); R07.9 Chest pain, unspecified; D64.9 Anemia, unspecified; R01.1 Cardiac murmur, unspecified | CPT/HCPCS: 96127 ==